=== PATIENT | female | born 1985 | race Caucasian/White ===

== ENCOUNTER 2020-05-09 19:30 | Emergency (ER) | payer OTHER ==
[~2020-05-09] VITALS: Ht 165.1 cm; Wt 72.6 kg
[~2020-05-09 19:30] MED LIST: MEDROLDOSEPACK PO; PERCOCET 5-3251 EACH PO
[2020-05-09 19:43] LABS: URINE BILIRUBIN NEGATIVE (Negative); URINE BLOOD 3+ (Negative); URINE CLARITY CLEAR; URINE COLOR YELLOW; URINE GLUCOSE-RANDOM* NEGATIVE (Negative); URINE KETONES NEGATIVE (Negative); URINE NITRITE-REFLEX NEGATIVE (Negative); URINE PROTEIN (DIPSTICK) NEGATIVE (Negative); URINE SPECIFIC GRAVITY >= 1.030 (1.005-1.035); URINE UROBILINOGEN 0.2 E.U./dl (0.2-1.0)
[2020-05-09 19:49] LABS: URINE LEUKOCYTES-REFLEX 1+ (Negative)
[2020-05-09 19:53] LABS: MUCUS >6 Heavy strn/LPF (None Seen); SQUAMOUS >10 Many /LPF (0-3)
[2020-05-09 19:55] LABS: BACTERIA-REFLEX >30 Many /HPF (None Seen); YEAST-REFLEX Present (None Seen)
[2020-05-09 20:00] LABS: CASTS None Seen /LPF (None Seen)
[2020-05-09 20:01] LABS: CRYSTALS None Seen /LPF (None Seen); URINE RBC 3-10 Few /HPF (0-2)
[2020-05-09 20:28] VITALS: BP 139/91
== END 2020-05-09 20:28 | disposition home or self-care (01) ==
LOC: ER 19:30
PROVIDERS: Emergency Medicine
DX: N93.9 Abnormal uterine and vaginal bleeding, unspecified (principal); J45.909 Unspecified asthma, uncomplicated; F17.210 Nicotine dependence, cigarettes, uncomplicated